=== PATIENT | male | born 2000 | race African-American/Black ===

== ENCOUNTER 2022-09-19 08:56 | Emergency (ER) | payer SELFPAY ==
[2022-09-19 09:17] VITALS: BP 123/84; PULSE 108; TEMP 37; O2SAT 100
--- NOTE | 2022-09-19 09:20 | ECG_ITS ---
Measurements Intervals [place] Rate: 100 P: 68 [place]: 142 QRS: 48 QRSD: 86 T: 50 QT: 319 QTc: 413 Interpretive Statements SINUS TACHYCARDIA POSSIBLE RIGHT ATRIAL ENLARGEMENT POSSIBLE LEFT ATRIAL ENLARGEMENT ST ELEVATION IN DIFFUSE LEADS, PROBABLY EARLY REPOLARIZATION BASELINE ARTIFACT- I, III, AVR, AVL BORDERLINE ECG NO PREVIOUS ECG AVAILABLE FOR COMPARISON Electronically Signed On 09-19-2022 10:56:45 CDT by Casper Win D.O.
[2022-09-19] MEDS: ONDANSETRON INJ 4 MG/2 ML VIAL IV PUSH (09:41)
[2022-09-19] MEDS: SODIUM CHLORIDE 0.9% IV 1,000 ML 999 ML IV CONT (09:42)
[2022-09-19 09:45] LABS: Basophils Absolute Auto 0.05 K/mm3 (0.00-0.10); Basophils Percent Auto 0.5 % (0.0-1.0); Eosinophils Percent Auto 1.1 % (1.0-6.0); Hematocrit 49.9 % (40.0-54.0); Hemoglobin 16.7 g/dL (14.0-18.0); Immature Granulocyte Absolute 0.02 K/mm3 (0.00-0.00); Immature Granulocyte Percent A 0.2 % (0.0-0.0); Lymphocytes Absolute Auto 2.24 K/mm3 (1.10-4.50); Lymphocytes Percent Auto 24.4 % (18.0-42.0); Mean Corpuscular HGB Conc 33.5 g/dL (32.0-36.0); Mean Corpuscular Hemoglobin 29.2 pg (27.0-31.0); Mean Corpuscular Volume 87.4 fL (78.0-102.0); Mean Platelet Volume 9.6 fl (8.7-11.0); Monocytes Absolute Auto 1.08 K/mm3 (0.10-0.90); Monocytes Percent Auto 11.8 % (2.0-11.0); Neutrophils Absolute Auto 5.7 K/mm3 (1.7-7.2); Platelet Count Result 316 K/mm3 (150-420); Red Blood Count 5.71 M/mm3 (4.70-6.10); Red Cell Distribution Width 13.5 % (11.6-14.4); White Blood Count 9.2 K/mm3 (4.8-10.8)
--- NOTE | 2022-09-19 10:06 | PC.NURSE ---
ems report from marcus kovacs [id number].
[2022-09-19 10:08] LABS: Alanine Aminotransferase 81 U/L (16-63); Albumin Level 4.7 g/dL (3.4-5.0); Alkaline Phosphatase 96 U/L (46-116); Anion Gap 17 mmol/L (8-16); Aspartate Amino Transferase 50 U/L (15-37); Bilirubin,Total 0.5 mg/dL (0.00-1.00); Blood Urea Nitrogen 33 mg/dL (7-18); Carbon Dioxide 20 mmol/L (21-32); Chloride 94 mmol/L (98-108); Creatine Kinase 411 U/L (39-308); Estimated CRCL calculation 87 ml/min; Estimated Glomerular Filt Rate > 60; Glucose 97 mg/dL (70-99); Osmolality Calculated 279 mOsm/kg (285-295); Potassium 4.3 mmol/L (3.5-5.1); Sodium 131 mmol/L (136-145); Total Protein 9.6 g/dL (6.4-8.2)
[2022-09-19 10:10] LABS: Lactic Acid Reflex 1.5 mmol/L (0.4-2.0)
--- NOTE | 2022-09-19 10:26 | ED.WEAKNESS ---
HPI - Weakness General Chief complaint: Extremity Problem,Nontraumatic Stated complaint: leg cramping Time Seen by Provider: 09/19/22 09:20 Source: patient and EMS History of Present Illness HPI Narrative: this is a 22-year-old gentleman that has been cycling for his work at [employer] and [place] a significant amount of miles per day and today developed lower extremity cramping and tightness and weakness, with no chest pain no shortness of breath no fever chills no nausea vomiting no headaches. Complaint: generalized weakness Onset (ago): hour(s) Duration: constant Severity: mild Quality: aching Related Data Home Medications Medication Instructions Recorded Confirmed No Home Medications 09/19/22 09/19/22 Allergies Allergy/AdvReac Type Severity Reaction Status Date / Time Cephalosporins AdvReac Other Verified 09/19/22 09:28 Review of Systems Review of Systems: All systems reviewed & are unremarkable except as noted in HPI and below PMFSH Past Medical History Medical History Patient denies medical problems Exam Const: General: healthy appearing Nutritional Appearance: well nourished Orientation/consciousness: patient oriented x3 Limitations: no limitations HENMT: Head: normal to inspection Eyes: Conjunctivae: conjunctivae normal Pupils: Equal, round and reactive pupils present Neck: Neck: normal visual inspection Chest: Chest palpation & inspection: normal inspection of the chest Resp: Effort & Inspection: normal respiratory effort Auscultation: clear to auscultation bilaterally Cardio: Rate: regular rate Rhythm: regular rhythm GI: GI Palp: Yes Soft to palpation : General: Yes bladder normal to palpation Skin: General skin exam: normal color Rashes: no rashes Neuro: General: patient oriented x3 and moves all extremities Cranial nerves: Yes Nystagmus not present Extrem: General: normal to inspection Psych: Mental Status: mental status grossly normal Course Course Emergency Course: patient received IV fluids with normal saline symptoms have improved, EKG reviewed with patient as well as labs CK was mildly elevated, did receive the normal saline. Vital Signs Vital signs: Vital Signs Temperature 37.0 C 09/19/22 09:17 Pulse Rate 108 H 09/19/22 09:17 Blood Pressure 123/84 09/19/22 09:17 Pulse Oximetry 100 09/19/22 09:17 Oxygen Delivery Room Air 09/19/22 09:17 Temperature 37.0 C 09/19/22 09:17 Pulse Rate 108 H 09/19/22 09:17 Blood Pressure 123/84 09/19/22 09:17 Pulse Oximetry 100 09/19/22 09:17 Oxygen Delivery Room Air 09/19/22 09:17 MDM - Weakness Lab Data 09/19/22 09:41 09/19/22 09:41 Labs: Lab Results 09/19/22 Range/Units 09:41 WBC 9.2 (4.8-10.8) K/mm3 RBC 5.71 (4.70-6.10) M/mm3 Hgb 16.7 (14.0-18.0) g/dL Hct 49.9 (40.0-54.0) % MCV 87.4 (78.0-102.0) fL MCH 29.2 (27.0-31.0) pg MCHC 33.5 (32.0-36.0) g/dL RDW 13.5 (11.6-14.4) % Plt Count 316 (150-420) K/mm3 MPV 9.6 (8.7-11.0) fl Immature Gran % (Auto) 0.2 H (0.0-0.0) % Neut % (Auto) 62.0 (50.0-70.0) % Lymph % (Auto) 24.4 (18.0-42.0) % [place] % (Auto) 11.8 H (2.0-11.0) % Eos % (Auto) 1.1 (1.0-6.0) % Baso % (Auto) 0.5 (0.0-1.0) % Lymph # (Auto) 2.24 (1.10-4.50) K/mm3 [place] # (Auto) 1.08 H (0.10-0.90) K/mm3 Eos # (Auto) 0.10 (0.02-0.50) K/mm3 Baso # (Auto) 0.05 (0.00-0.10) K/mm3 Abs Immat Gran (auto) 0.02 H (0.00-0.00) K/mm3 Absolute Neuts (auto) 5.7 (1.7-7.2) K/mm3 Absolute Nucleated RBC 0.00 (0.00-0.00) K/mm3 Nucleated RBC % 0.0 (0-0.0) % Sodium 131 L (136-145) mmol/L Potassium 4.3 (3.5-5.1) mmol/L Chloride 94 L (98-108) mmol/L Carbon Dioxide 20 L (21-32) mmol/L Anion Gap 17 H (8-16) mmol/L BUN 33 H (7-18) mg/dL Creatinine 1.27 (0.70-1.30) mg/dL Estim Creat Clear Calc 87 ml/min Estimated GFR
[2022-09-19 10:55] VITALS: BP 132/97; PULSE 98; RESP 20; TEMP 36.9; O2SAT 99
== END 2022-09-19 11:05 | disposition home or self-care (01) ==
PROVIDERS: Emergency Provider Emergency Medicine
DX: R25.2 Cramp and spasm (principal)
CPT/HCPCS: 36415; 80053; 82550; 83605; 85025; 93005; 96361; 96374; 99284; J2405; J7030

== ENCOUNTER 2022-12-29 18:15 | Emergency (ER) | payer SELFPAY ==
--- NOTE | ~2022-12-29 | XR_ITS ---
EXAMINATION: XR chest 1V portable INDICATION: Presyncope TECHNIQUE: Portable AP chest at 2246 hours COMPARISON: None available FINDINGS: The lungs are free of acute opacities. No pleural effusion or pneumothorax. The cardiomedia stinal silhouette is normal. IMPRESSION: 1. No acute cardiopulmonary abnormality. Reviewed, dictated and finalized at location A.
[2022-12-29 18:53] VITALS: BP 110/59; PULSE 64; RESP 18; TEMP 36.8; O2SAT 100
[2022-12-29 22:38] VITALS: BP 130/76; PULSE 66; RESP 16; O2SAT 100
--- NOTE | 2022-12-29 22:39 | ECG_ITS ---
Measurements Intervals [place] Rate: 54 P: 67 [place]: 144 QRS: 64 QRSD: 105 T: 57 QT: 412 QTc: 393 Interpretive Statements SINUS BRADYCARDIA WITH MARKED SINUS ARRHYTHMIA ST ELEVATION IN DIFFUSE LEADS- PROBABLY EARLY REPOLARIZATION BASELINE ARTIFACT- I, III, AVR, AVL, AVF BORDERLINE ECG COMPARED TO ECG 09/19/2022 09:35:14 SINUS BRADYCARDIA NOW PRESENT SINUS ARRHYTHMIA NOW PRESENT Electronically Signed On 12-30-2022 8:11:06 CDT by Casper Win D.O.
[2022-12-29] MEDS: SODIUM CHLORIDE 0.9% IV 2,000 ML 999 ML IV CONT (22:58)
[2022-12-29 23:03] VITALS: BP 116/74; PULSE 59; RESP 13
--- NOTE | 2022-12-29 23:04 | ECG_ITS ---
Measurements Intervals [place] Rate: 68 P: -78 [place]: 108 QRS: 59 QRSD: 98 T: 53 QT: 410 QTc: 436 Interpretive Statements SINUS RHYTHM WITH MARKED SINUS ARRHYTHMIA CHANGES TO ECTOPIC ATRIAL RHYTHM ST ELEVATIOIN IN DIFFUSE LEADS- PROBABLY EARLY REPOLARIZATION BASELINE ARTIFACT- I, II, III, AVR, AVLL, AVF, V1-V2 ABNORMAL ECG COMPARED TO ECG 12/29/2022 22:56:41 ECTOPIC ATRIAL RHYTHM NOW PRESENT Electronically Signed On 01-02-2023 8:31:30 CDT by Casper Win D.O.
[2022-12-29 23:21] LABS: Basophils Absolute Auto 0.1 K/mm3 (0.0-0.1); Basophils Percent Auto 0.6 % (0.2-1.2); Eosinophils Absolute Auto 0.3 K/mm3 (0-0.3); Eosinophils Percent Auto 3.6 % (0-4.4); Hematocrit 48.5 % (42.0-52.0); Hemoglobin 16.2 g/dL (14.0-18.0); Immature Granulocyte Absolute 0.02 K/mm3 (0.00-0.031); Immature Granulocyte Percent A 0.2 % (0-0.5); Lymphocytes Absolute Auto 3.38 K/mm3 (0.9-3.2); Lymphocytes Percent Auto 38.4 % (18.3-44.2); Mean Corpuscular HGB Conc 33.4 g/dl (32-36); Mean Corpuscular Volume 86.9 fl (80-100); Mean Platelet Volume 9.9 fl (7.4-10.4); Monocytes Absolute Auto 0.9 K/mm3 (0.1-0.6); Monocytes Percent Auto 10.2 % (2.6-8.5); Neutrophils Absolute Auto 4.1 K/mm3 (1.3-6.7); Platelet Count Result 290 k/mm3 (150-375); Red Blood Count 5.58 M/mm3 (4.6-6.20); White Blood Count 8.8 K/mm3 (4.5-10.0)
[2022-12-29 23:42] LABS: Alanine Aminotransferase 20 U/L (6-50); Albumin Level 4.8 g/dL (3.5-5.1); Alkaline Phosphatase 79 U/L (38-126); Anion Gap 12 mmol/L (8-16); Aspartate Amino Transferase 25 U/L (17-59); Bilirubin,Total 0.7 mg/dL (0.2-1.3); Blood Urea Nitrogen 11 mg/dL (9-20); Calcium 9.9 mg/dL (8.4-10.2); Carbon Dioxide 27 mmol/L (22-30); Chloride 97 mmol/L (98-107); Creatine Kinase 157 U/L (55-170); Estimated CRCL calculation 136 ml/min; Estimated Glomerular Filt Rate > 60; Glucose 84 mg/dL (65-110); Magnesium 2.1 mg/dL (1.6-2.3); Potassium 3.7 mmol/L (3.4-5.0); Sodium 136 mmol/L (137-145)
[2022-12-29] MEDS: SODIUM CHLORIDE 0.9% IV 1,000 ML 999 ML IV CONT (23:55)
[2022-12-29] MEDS: ONDANSETRON INJ 4 MG/2 ML VIAL IV PUSH (23:56)
[2022-12-29] MEDS: FAMOTIDINE 20 MG/2 ML VIAL IV PUSH (23:56)
[2022-12-29] MEDS: ACETAMINOPHEN 500 MG TABLET 1000 MG PO (23:56)
[2022-12-30] VITALS: BP 111/57; PULSE 55; RESP 17; O2SAT 98
[2022-12-30 00:04] LABS: Lactic Acid Reflex 1.1 mmol/L (0.7-2.0)
[2022-12-30 01:00] VITALS: BP 104/73; PULSE 106; RESP 22; O2SAT 95
[2022-12-30 01:51] LABS: Appearance Urine Clear (Clear); Bilirubin Urine Negative (Negative); Blood Urine Negative (Negative); Color Urine Yellow (Yellow); Glucose Urine UA Negative (Negative); Ketones Urine Trace mg/dL (Negative); Leukocyte Esterase Ur Negative LEU/UL (Negative); Nitrate Urine Negative (Negative); Protein Urine Negative (Negative); Specific Grav Ur 1.016 (1.001-1.035); pH Urine 5.5 (5.0-9.0)
[2022-12-30 02:05] LABS: Amphetamine Screen Urine Negative (Negative); Barbiturate Screen Urine Negative (Negative); Benzodiazepines Screen Urine Negative (Negative); Cannabinoid Screen Urine Positive (Negative); Cocaine Screen Urine Positive (Negative); Methadone Screen Urine Negative (Negative); Opiate Screen Urine Negative (Negative); Phencyclidine Screen Urine Negative (Negative)
[2022-12-30 02:42] LABS: Add Urine Microscopic? NO
--- NOTE | 2022-12-30 03:01 | ED.GENADULT ---
HPI - General Adult General Chief complaint: Dizziness Stated complaint: via EMS with heat exhaustion Time Seen by Provider: 12/29/22 22:33 History of Present Illness HPI narrative: this is a 22-year-old male presenting ED with chief complaint of heat exhaustion. Patient was working out at the gym running on the treadmill. He then left him walk to the corner store. He said that he became diaphoretic sweaty and felt like he was going to pass out. He then called EMS and was brought to the hospital for evaluation. Patient says that he is currently homeless he has not been eating and drinking very well lately. At this time he feels fatigued and nauseous but no other complaints. Related Data Home Medications Medication Instructions Recorded Confirmed No Home Medications 09/19/22 09/19/22 Allergies Allergy/AdvReac Type Severity Reaction Status Date / Time Cephalosporins AdvReac Other Verified 12/29/22 18:53 [facility] Past Medical History Medical History Patient denies medical problems Exam Narrative: APPEARANCE: No apparent distress. malodorous Head: atraumatic. EYES: EOMI, NOSE: Atraumatic NECK: Trachea midline RESPIRATORY: No increased rate of breathing, CTAB CARDIOVASCULAR: RRR, peripheral edema ABDOMINAL: Non-distended soft nontender no guarding rebound, no CVA tenderness MUSCULOSKELETAl: No obvious deformities NEURO: Alert. Moving 4/4 extremities SKIN:: Warm, dry. Normal color PSYCHIATRIC: Normal affect Course Vital Signs Vital signs: Vital Signs Temperature 98.3 F 12/29/22 18:53 Pulse Rate 64 12/29/22 18:53 Respiratory Rate 18 12/29/22 18:53 Blood Pressure 110/59 L 12/29/22 18:53 Pulse Oximetry 100 12/29/22 18:53 Oxygen Delivery Room Air 12/29/22 18:53 Temperature 98.3 F 12/29/22 18:53 Pulse Rate 106 H 12/30/22 01:00 Respiratory Rate 22 H 12/30/22 01:00 Blood Pressure 104/73 12/30/22 01:00 Pulse Oximetry 95 12/30/22 01:00 Oxygen Delivery Room Air 12/29/22 18:53 Medical Decision Making MDM Narrative Medical decision making narrative: -Course: 22-year-old male presenting with diaphoresis and lightheadedness. On arrival the patient had normal temperature. He was fluid resuscitated with improvement in his symptoms. Laboratory studies were within acceptable limits. Urine drug screen was positive for cannabinoids and cocaine. Patient will be discharged with a list of homeless shelters. -DDX includes but is not limited to: Heat exhaustion, dehydration, over exertion, substance use disorder, cocaine washout. -Co-morbidities complicating care: homelessness, polysubstance use disorder -Social determinants of health: homeless, works at [employer] -Independent interpretation of studies: laboratory studies when acceptable limits. Drug screen positive for cocaine and cannabinoids. CPK and lactic normal. Chest x-ray normal. Independent EKG interpretation: Rhythm [sinus], Rate [54], [place] -[normal], [place] -[normal], QRS [narrow], QTC [normal], T waves -[negative for concerning inversions], ST Segments - [Negative for concerning elevations Impression: sinus Shayne with benign early refill -Interventions: Tylenol, Zofran, 3 L normal saline -Shared decision making / Disposition: discharge -RX Vital Signs Vital Signs: Vital Signs Temperature 98.3 F 12/29/22 18:53 Pulse Rate 64 12/29/22 18:53 Respiratory Rate 18 12/29/22 18:53 Blood Pressure 110/59 L 12/29/22 18:53 Pulse Oximetry 100 12/29/22 18:53 Oxygen Delivery Room Air 12/29/22 18:53 Temperature 98.3 F 12/29/22 18:53 Pulse Rate 106 H 12/30/22 01:00 Respiratory Rate 22 H 12/30/22 01:00 Blood Pressure 104/73 12/30/22 01:00 Pulse Oximetry 95 12/30/22 01:00 Oxygen Delivery Room Air 12/29/22 18:53 Lab Data 12/29/22 23:15 12/29/22 23:15 Labs: Lab Results 12/29/22
[2022-12-30 03:03] VITALS: BP 117/59; PULSE 58; RESP 16; TEMP 36.7; O2SAT 100
[2022-12-30 03:19] VITALS: BP 117/59; PULSE 78; RESP 17; O2SAT 98
== END 2022-12-30 03:22 | disposition home or self-care (01) ==
PROVIDERS: Emergency Provider Emergency Medicine
DX: T67.5XXA Heat exhaustion, unspecified, initial encounter (principal); Z59.00 Homelessness unspecified; R00.1 Bradycardia, unspecified; X30.XXXA Exposure to excessive natural heat, initial encounter
CPT/HCPCS: 36415; 71045; 80053; 80307; 81003; 82550; 83605; 83735; 85025; 93005; 96361; 96374; 96375; 99284; A9270; J2405; J7030

== ENCOUNTER 2023-02-06 21:00 | Emergency (ER) | payer SELFPAY ==
[2023-02-06 21:53] VITALS: BP 147/84; PULSE 85; RESP 16; TEMP 36.1; O2SAT 99
--- NOTE | 2023-02-07 02:10 | PC.NURSE ---
Pt reports that he walks a lot and his feet started hurting yesterday. Appears to have popped blisters to bilat plantar feet. Able to slowly ambulate to ED tx room with steady gait.
[2023-02-07 02:12] VITALS: BP 138/74; PULSE 68; RESP 16; O2SAT 99
[2023-02-07 03:25] LABS: Basophils Absolute Auto 0.1 K/mm3 (0.0-0.1); Basophils Percent Auto 0.7 % (0.2-1.2); Eosinophils Absolute Auto 0.2 K/mm3 (0-0.3); Hematocrit 43.7 % (42.0-52.0); Hemoglobin 14.3 g/dL (14.0-18.0); Immature Granulocyte Absolute 0.02 K/mm3 (0.00-0.031); Immature Granulocyte Percent A 0.3 % (0-0.5); Lymphocytes Percent Auto 39.2 % (18.3-44.2); Mean Corpuscular HGB Conc 32.7 g/dl (32-36); Mean Corpuscular Hemoglobin 28.9 pg (26-34); Mean Corpuscular Volume 88.3 fl (80-100); Mean Platelet Volume 9.5 fl (7.4-10.4); Monocytes Absolute Auto 0.8 K/mm3 (0.1-0.6); Monocytes Percent Auto 10.5 % (2.6-8.5); Neutrophils Absolute Auto 3.4 K/mm3 (1.3-6.7); Neutrophils Percent Auto 46.3 % (45.5-73.1); Platelet Count Result 272 k/mm3 (150-375); Red Blood Count 4.95 M/mm3 (4.6-6.20); Red Cell Distribution Width 13.8 % (11.5-14.5); White Blood Count 7.4 K/mm3 (4.5-10.0)
[2023-02-07 04:13] LABS: Alanine Aminotransferase 39 U/L (6-50); Albumin Level 4.1 g/dL (3.5-5.1); Alkaline Phosphatase 77 U/L (38-126); Anion Gap 7 mmol/L (8-16); Aspartate Amino Transferase 61 U/L (17-59); Bilirubin,Total 0.5 mg/dL (0.2-1.3); Blood Urea Nitrogen 10 mg/dL (9-20); Carbon Dioxide 24 mmol/L (22-30); Chloride 105 mmol/L (98-107); Estimated CRCL calculation 183 ml/min; Estimated Glomerular Filt Rate > 60; Glucose 97 mg/dL (65-110); Potassium 3.9 mmol/L (3.4-5.0); Sodium 136 mmol/L (137-145)
--- NOTE | 2023-02-07 05:10 | ED.GENADULT ---
HPI - General Adult General Chief complaint: Extremity Problem,Nontraumatic Stated complaint: lower extremity pain Time Seen by Provider: 02/07/23 02:43 History of Present Illness HPI narrative: Patient is a 22-year-old gentleman who presents the emergency department with chief complaint of foot pain. The patient reports that his shoes got wet the other day and reports that his feet have been irritated and are sore. Patient denies purulent drainage reports that there is some redness to his feet the patient reports also that there irritation between the toes. Related Data Allergies Allergy/AdvReac Type Severity Reaction Status Date / Time Cephalosporins AdvReac Other Verified 12/29/22 18:53 Review of Systems Review of Systems: A 10 system review of systems was completed on the patient and is negative except for what is stated in the HPI. Nursing and ancillary documentation was reviewed. [facility] Past Medical History Medical History Patient denies medical problems Exam Narrative: GENERAL: Well-appearing, well-nourished, and in no acute distress. HEAD: Normocephalic, atraumatic. EYES: PERRLA and EOMI. ENT: Nares clear, no rhinorrhea or epistaxis. Mucous membranes moist. NECK: Supple. CHEST: Clear to auscultation. No respiratory distress. HEART: Regular rate and rhythm. No murmur heard. Normal peripheral pulses. ABDOMEN: Soft, nontender, nondistended, normal active bowel sounds. EXTREMITIES: Normal range of motion. No edema. SKIN: Warm, feet are moist and malodorous NEURO: No focal deficits. Alert and oriented x3. PSYCH: Normal mood and affect. Course Vital Signs Vital signs: Vital Signs Temperature 36.1 C L 02/06/23 21:53 Pulse Rate 85 02/06/23 21:53 Respiratory Rate 16 02/06/23 21:53 Blood Pressure 147/84 H 02/06/23 21:53 Pulse Oximetry 99 02/06/23 21:53 Oxygen Delivery Room Air 02/06/23 21:53 Temperature 36.1 C L 02/06/23 21:53 Pulse Rate 68 02/07/23 02:12 Respiratory Rate 16 02/07/23 02:12 Blood Pressure 138/74 02/07/23 02:12 Pulse Oximetry 99 02/07/23 02:12 Oxygen Delivery Room Air 02/06/23 21:53 Medical Decision Making [facility] Narrative Medical decision making narrative: Differential diagnosis includes cellulitis, athlete's foot, Plain film x-ray showed no evidence of osteomyelitis or foreign body Laboratory studies were obtained which showed a normal white blood cell count electrolytes are within normal limits Patient be started on Bactrim and will be discharged home with a prescription for a topical antifungal Vital Signs Vital Signs: Vital Signs Temperature 36.1 C L 02/06/23 21:53 Pulse Rate 85 02/06/23 21:53 Respiratory Rate 16 02/06/23 21:53 Blood Pressure 147/84 H 02/06/23 21:53 Pulse Oximetry 99 02/06/23 21:53 Oxygen Delivery Room Air 02/06/23 21:53 Temperature 36.1 C L 02/06/23 21:53 Pulse Rate 68 02/07/23 02:12 Respiratory Rate 16 02/07/23 02:12 Blood Pressure 138/74 02/07/23 02:12 Pulse Oximetry 99 02/07/23 02:12 Oxygen Delivery Room Air 02/06/23 21:53 Lab Data 02/07/23 03:17 02/07/23 03:17 Labs: Lab Results 02/07/23 Range/Units 03:17 WBC 7.4 (4.5-10.0) K/mm3 RBC 4.95 (4.6-6.20) M/mm3 Hgb 14.3 (14.0-18.0) g/dL Hct 43.7 (42.0-52.0) % MCV 88.3 (80-100) fl MCH 28.9 (26-34) pg MCHC 32.7 (32-36) g/dl RDW 13.8 (11.5-14.5) % Plt Count 272 (150-375) k/mm3 MPV 9.5 (7.4-10.4) fl Immature Gran % (Auto) 0.3 (0-0.5) % Neut % (Auto) 46.3 (45.5-73.1) % Lymph % (Auto) 39.2 (18.3-44.2) % [place] % (Auto) 10.5 H (2.6-8.5) % Eos % (Auto) 3.0 (0-4.4) % Baso % (Auto) 0.7 (0.2-1.2) % Lymph # (Auto) 2.90 (0.9-3.2) K/mm3 [place] # (Auto) 0.8 H (0.1-0.6) K/mm3 Eos # (Auto) 0.2 (0-0.3) K/mm3 Baso # (Auto) 0.1 (0.0-0.1) K/mm3 Abs Immat Gran (auto
[2023-02-07 06:13] VITALS: BP 133/81; PULSE 78; RESP 16; O2SAT 99
== END 2023-02-07 06:14 | disposition home or self-care (01) ==
PROVIDERS: Emergency Provider Emergency Medicine
DX: L03.116 Cellulitis of left lower limb (principal); L03.115 Cellulitis of right lower limb
CPT/HCPCS: 36415; 73630; 80053; 85025; 99284

== ENCOUNTER 2023-06-07 19:33 | Emergency (ER) | payer SELFPAY ==
[2023-06-07 19:45] VITALS: BP 124/78; PULSE 78; RESP 18; TEMP 37.6; O2SAT 98
[2023-06-07] MEDS: ONDANSETRON INJ 4 MG/2 ML VIAL IV PUSH (20:03)
[2023-06-07] MEDS: ACETAMINOPHEN 500 MG TABLET 1000 MG PO (20:03)
[2023-06-07] MEDS: SODIUM CHLORIDE 0.9% IV 1,000 ML 999 ML IV CONT (20:05)
[2023-06-07] MEDS: IBUPROFEN 600 MG TABLET PO (20:43)
--- NOTE | 2023-06-07 20:48 | ED.WEAKNESS ---
HPI - Weakness General Chief complaint: Weakness Stated complaint: Weakness Time Seen by Provider: 06/07/23 19:44 Source: patient Mode of arrival: ambulatory Limitations: no limitations History of Present Illness HPI Narrative: this is a 23-year-old male with significant past history presents with body aches weakness and fever 99.8 with some some nausea and no shortness of breath no chest pain no neck pain or stiffness with a no cough does have some mild congestion with some diarrhea and no abdominal pain. Denies dysuria no hematuria no flank pain. MD Complaint: generalized weakness Onset (ago): day(s) Duration: constant Severity: moderate Related Data Allergies Allergy/AdvReac Type Severity Reaction Status Date / Time Cephalosporins AdvReac Other Verified 12/29/22 18:53 Review of Systems Review of Systems: All systems reviewed & are unremarkable except as noted in HPI and below PMFSH Past Medical History Medical History Patient denies medical problems Exam Const: General: no acute distress Nutritional Appearance: well nourished Orientation/consciousness: patient oriented x3 Limitations: no limitations Eyes: Conjunctivae: conjunctivae normal Neck: Neck: normal visual inspection, no lymphadenopathy and no meningeal signs Chest: Chest palpation & inspection: normal inspection of the chest Resp: Effort & Inspection: normal respiratory effort Auscultation: clear to auscultation bilaterally Cardio: Rate: regular rate Rhythm: regular rhythm GI: GI Palp: Yes Soft to palpation : General: Yes bladder normal to palpation Back/Spine/Pelvis: Back: no CVA tenderness Skin: General skin exam: normal color Rashes: no rashes Neuro: General: patient oriented x3, moves all extremities and no meningeal signs Course Course Emergency Course: Patient received a dose of 1g Tylenol and 600mg of Motrin and Zofran IV along with IV fluids. COVID RSV and influenza reviewed And were negative Vital Signs Vital signs: Vital Signs Temperature 37.6 C H 06/07/23 19:45 Pulse Rate 78 06/07/23 19:45 Respiratory Rate 18 06/07/23 19:45 Blood Pressure 124/78 06/07/23 19:45 Pulse Oximetry 98 06/07/23 19:45 Oxygen Delivery Room Air 06/07/23 19:45 Temperature 37.6 C H 06/07/23 19:45 Pulse Rate 78 06/07/23 19:45 Respiratory Rate 18 06/07/23 19:45 Blood Pressure 124/78 06/07/23 19:45 Pulse Oximetry 98 06/07/23 19:45 Oxygen Delivery Room Air 06/07/23 19:45 MDM - Weakness Lab Data Labs: Lab Results 06/07/23 Range/Units 19:44 Influenza A (RT-PCR) Pending Influenza B (RT-PCR) Pending RSV (RT-PCR) Pending SARS-CoV-2 RNA (RT-PCR) Pending Critical Care Time Critical Care Time Critical Care Time: No Discharge Plan Discharge Clinical Impression: Gastroenteritis Patient Disposition: Home, Self-Care Condition: Stable Instructions: Antibiotic Form, Clear Liquid Diet (ED), Gastroenteritis (ED), Acute Nausea and Vomiting (ED) Additional Instructions: advised to take Tylenol or Motrin drink plenty of fluids, clear liquid diet advanced as tolerated take medicine as prescribed and follow up with primary if symptoms persist or worsen. Prescriptions: New ondansetron 4 mg tablet,disintegrating 4 mg PO Q6H PRN (Reason: nausea and vomiting) Qty: 14 0RF Follow-up/Referrals: UNKNOWN,DOCTOR [Primary Care Provider] - Time of Disposition: 21:09
[2023-06-07 20:57] LABS: SARS-CoV-2 RNA PCR Negative (Negative)
[2023-06-07 20:59] LABS: Influenza A QL RT-PCR Negative (Negative); Influenza B QL RT-PCR Negative (Negative); RSV RNA, RT-PCR Negative (Negative)
[2023-06-07 21:08] VITALS: BP 120/59; PULSE 85; RESP 18; TEMP 37.1; O2SAT 98
== END 2023-06-07 21:23 | disposition home or self-care (01) ==
PROVIDERS: Emergency Provider Emergency Medicine
DX: K52.9 Noninfective gastroenteritis and colitis, unspecified (principal); Z20.822 Contact with and (suspected) exposure to COVID-19
CPT/HCPCS: 87637; 96361; 96374; 99284; A9270; J2405; J7030

== ENCOUNTER 2023-06-10 14:15 | Emergency (ER) | payer SELFPAY ==
[2023-06-10] VITALS (9 sets, daily range): BP systolic 125–150; BP diastolic 63–89; PULSE 49–82; RESP 15–20; TEMP 36.2; O2SAT 99–100
--- NOTE | 2023-06-10 17:00 | ED.NAVMDI ---
HPI - Nausea/Vomiting/Diarrhea General Chief complaint: Nausea/Vomiting/Diarrhea <GAYLE Carrasco Last Filed: 06/10/23 17:12> Stated complaint: nausea, light headedness <Debbie George PA-C - Last Filed: 06/10/23 17:12> Time Seen by Provider: 06/10/23 17:00 <GAYLE Carrasco Last Filed: 06/10/23 17:12> Focused HPI: Patient is a 23 y/o male who presents to the ED via EMS with multiple complaints. Patient reports having nausea and diarrhea for the last several days. Denies vomiting. Denies abdominal pain. He was seen at [facility] on 06/07 and diagnosed with gastroenteritis. Viral swabs were negative at that time. He was prescribed Zofran for home use, however states he did not pick this up from the pharmacy. Patient has had persistent nausea and diarrhea. He also report having a persistent headache this afternoon, worse with any movement/standing upright. IBARRA became so severe that he called for EMS. Reports improvement of IBARRA currently. He has not taken anything for the pain. Denies dizziness, lightheadedness, abdominal pain, vision changes, focal weakness, numbness. GENERAL: Well-appearing, well-nourished, and in no acute distress. HEAD: Normocephalic, atraumatic. CHEST: Clear to auscultation. ?No respiratory distress. HEART: Regular rate and rhythm.? NEURO: ?Alert and oriented x3. Patient screened in triage and initial orders placed.? ?Additional care and disposition to be based upon?diagnostic testing and treatment. <Debbie George PA-C - Last Filed: 06/10/23 17:12> Source: patient <GAYLE Carrasco Last Filed: 06/10/23 17:12> Mode of arrival: EMS <GAYLE Carrasco Last Filed: 06/10/23 17:12> Limitations: no limitations <GAYLE Carrasco Last Filed: 06/10/23 17:12> Related Data Allergies/Adverse reactions: Allergies Allergy/AdvReac Type Severity Reaction Status Date / Time Cephalosporins AdvReac Other Verified 12/29/22 18:53 <Debbie George PA-C - Last Filed: 06/10/23 17:12> [facility] Past Medical History Medical History: Medical History Patient denies medical problems <Debbie George PA-C - Last Filed: 06/10/23 17:12> Exam Narrative: APPEARANCE: No apparent distress. Head: Urine throat normal EYES: EOMI, NOSE: Atraumatic NECK: Trachea midline RESPIRATORY: No increased rate of breathing, clear to auscultation CARDIOVASCULAR: RRR no peripheral edema ABDOMINAL: Non-distended soft nontender no guarding rebound MUSCULOSKELETAl: No obvious deformities NEURO: Alert. Moving 4/4 extremities SKIN:: Warm, dry. Normal color PSYCHIATRIC: Normal affect <Yaakov Foote MD - Last Filed: 06/10/23 20:58> Course Vital Signs Vital signs: Vital Signs Temperature 97.1 F L 06/10/23 14:24 Pulse Rate 56 L 06/10/23 14:24 Respiratory Rate 20 06/10/23 14:24 Blood Pressure 150/81 H 06/10/23 14:24 Pulse Oximetry 100 06/10/23 14:24 Temperature 97.1 F L 06/10/23 14:24 Pulse Rate 49 L 06/10/23 19:30 Respiratory Rate 15 06/10/23 17:48 Blood Pressure 140/81 06/10/23 19:30 Pulse Oximetry 99 06/10/23 19:30 <Debbie George PA-C - Last Filed: 06/10/23 17:12> Vital Signs Temperature 97.1 F L 06/10/23 14:24 Pulse Rate 56 L 06/10/23 14:24 Respiratory Rate 20 06/10/23 14:24 Blood Pressure 150/81 H 06/10/23 14:24 Pulse Oximetry 100 06/10/23 14:24 Temperature 97.1 F L 06/10/23 14:24 Pulse Rate 49 L 06/10/23 19:30 Respiratory Rate 15 06/10/23 17:48 Blood Pressure 140/81 06/10/23 19:30 Pulse Oximetry 99 06/10/23 19:30 <Yaakov Foote MD - Last Filed: 06/10/23 20:58> MDM - Nausea/Vomiting/Diarrhea MDM Narrative Medical decision making narrative: MSE by AMISHA in triage. <Debbie George PA-C - Last Filed: 06/10/23 17:12>
[2023-06-10 17:51] LABS: Basophils Percent Auto 0.5 % (0.2-1.2); Eosinophils Absolute Auto 0.2 K/mm3 (0-0.3); Eosinophils Percent Auto 2.3 % (0-4.4); Hematocrit 41.9 % (42.0-52.0); Hemoglobin 13.6 g/dL (14.0-18.0); Immature Granulocyte Absolute 0.02 K/mm3 (0.00-0.031); Immature Granulocyte Percent A 0.3 % (0-0.5); Lymphocytes Absolute Auto 2.85 K/mm3 (0.9-3.2); Lymphocytes Percent Auto 35.6 % (18.3-44.2); Mean Corpuscular HGB Conc 32.5 g/dl (32-36); Mean Corpuscular Hemoglobin 28.6 pg (26-34); Mean Platelet Volume 10.1 fl (7.4-10.4); Monocytes Percent Auto 12.3 % (2.6-8.5); Neutrophils Absolute Auto 3.9 K/mm3 (1.3-6.7); Platelet Count Result 212 k/mm3 (150-375); Red Blood Count 4.76 M/mm3 (4.6-6.20); Red Cell Distribution Width 13.6 % (11.5-14.5)
[2023-06-10 18:05] LABS: Alanine Aminotransferase 20 U/L (6-50); Albumin Level 3.9 g/dL (3.5-5.1); Alkaline Phosphatase 72 U/L (38-126); Anion Gap 9 mmol/L (8-16); Aspartate Amino Transferase 40 U/L (17-59); Bilirubin,Total 0.4 mg/dL (0.2-1.3); Blood Urea Nitrogen 11 mg/dL (9-20); Calcium 9.3 mg/dL (8.4-10.2); Carbon Dioxide 25 mmol/L (22-30); Chloride 104 mmol/L (98-107); Estimated CRCL calculation 191 ml/min; Estimated Glomerular Filt Rate > 60; Glucose 85 mg/dL (65-110); Lipase 40 U/L (23-300); Potassium 3.2 mmol/L (3.4-5.0); Sodium 138 mmol/L (137-145)
[2023-06-10] MEDS: ACETAMINOPHEN 500 MG TABLET 1000 MG PO (18:05)
[2023-06-10] MEDS: ONDANSETRON INJ 4 MG/2 ML VIAL IV PUSH ×2 (18:05→20:45)
[2023-06-10 18:18] LABS: Appearance Urine Clear (Clear); Bacteria Urine None Seen /hpf; Bilirubin Urine Negative (Negative); Blood Urine Negative (Negative); Color Urine Yellow (Yellow); Glucose Urine UA Negative (Negative); Ketones Urine 1+ mg/dL (Negative); Leukocyte Esterase Ur Negative LEU/UL (Negative); Nitrate Urine Negative (Negative); Non Pathogenic Casts 0-2; Protein Urine Trace mg/dL (Negative); RBC Urine 0-2 /hpf (0-2); Specific Grav Ur 1.024 (1.001-1.035); Squamous Epithelial Cell Urine None seen /hpf (Few); WBC Urine 0-5 /hpf; pH Urine 5.5 (5.0-9.0)
[2023-06-10 18:24] LABS: Add Urine Microscopic? YES
[2023-06-10] MEDS: SODIUM CHLORIDE 0.9% IV 1,000 ML 999 ML IV CONT ×2 (18:45→19:43)
[2023-06-10] MEDS: POTASSIUM CHLORIDE 20 MEQ ER TABLET 40 MEQ PO (18:45)
[2023-06-10 19:10] LABS: Magnesium 2.3 mg/dL (1.6-2.3)
[2023-06-10] MEDS: LOPERAMIDE HCL 2 MG CAPSULE 4 MG PO (20:42)
[2023-06-10] MEDS: KETOROLAC 15 MG/ML VIAL (*BKC) IV PUSH (20:46)
== END 2023-06-10 21:32 | disposition home or self-care (01) ==
PROVIDERS: Physician Assistant; Emergency Provider Emergency Medicine
DX: K52.9 Noninfective gastroenteritis and colitis, unspecified (principal)
CPT/HCPCS: 36415; 80053; 81001; 83690; 83735; 85025; 96361; 96374; 96375; 96376; 99284; A9270; J1885; J2405; J7030